=== PATIENT | male | born 1985 | race Hispanic/Latino ===

== ENCOUNTER 2018-06-02 06:50 | Emergency (ER) | payer MEDICAID ==
[2018-06-02 07:15] VITALS: TEMP 98.9; O2SAT 100
--- NOTE | 2018-06-02 07:21 | ED PDOC ---
HPI: Psych/Substance Abuse Time Seen by Provider: 06/02/18 07:07 Chief Complaint (Nursing): Anxiety Chief Complaint (Provider): Anxiety History Per: Patient History/Exam Limitations: no limitations Onset/Duration Of Symptoms: Hrs (last night and this morning) Associated Symptoms: Anxiety Additional Complaint(s): Maldonado Beltran is a 32 year old male, with a past medical history of anxiety, who was brought to the emergency department by EMS for anxiety/panic attack starting last night and this morning. No further medical complaints. Patient is calm after having received Ativan 2mg IV. PMD: None provided. Past Medical History Reviewed: Historical Data, Nursing Documentation, Vital Signs Vital Signs: Last Vital Signs Temp 98.9 F 06/02/18 07:10 Pulse 79 06/02/18 07:10 Resp 22 06/02/18 07:10 BP 117/72 06/02/18 07:10 Pulse Ox 100 06/02/18 07:10 - Medical History PMH: Anxiety Denies: Diabetes, Hepatitis, HIV, HTN, Chronic Kidney Disease, Seizures, Sexually Transmitted Disease - Surgical History Surgical History: No Surg Hx - Family History Family History: States: Unknown Family Hx - Home Medications Home Medications: Ambulatory Orders Medication Instructions Recorded Escitalopram [Lexapro] 10 mg PO DAILY 30 Days #30 tab 06/05/17 Prazosin HCl [Minipress] 1 mg PO HS 30 Days #30 cap 06/05/17 risperiDONE [RisperDAL Tab] 2 mg PO HS 30 Days #30 tab 06/05/17 - Allergies Allergies/Adverse Reactions: Allergies Allergy/AdvReac Type Severity Reaction Status Date / Time amoxicillin Allergy RASH Verified 05/29/17 20:51 Review of Systems ROS Statement: Except As Marked, All Systems Reviewed And Found Negative Psych: Positive for: Anxiety Physical Exam - Reviewed Nursing Documentation Reviewed: Yes Vital Signs Reviewed: Yes - Physical Exam Appears: Positive for: No Acute Distress Head Exam: Positive for: ATRAUMATIC, NORMAL INSPECTION, NORMOCEPHALIC Skin: Positive for: Normal Color, Warm, Dry Eye Exam: Positive for: Normal appearance, EOMI, PERRL Neck: Positive for: Normal, Painless ROM Cardiovascular/Chest: Positive for: Regular Rate, Rhythm. Negative for: Murmur Respiratory: Positive for: Normal Breath Sounds. Negative for: Respiratory Distress Gastrointestinal/Abdominal: Positive for: Normal Exam, Soft. Negative for: Tenderness, Guarding, Rebound Extremity: Positive for: Normal ROM (upper and lower extremities). Negative for: Deformity, Swelling Neurologic/Psych: Positive for: Alert (Sleeping. Unable to arouse, responsive to painful stimuli by moaning.). Negative for: Motor/Sensory Deficits (no focal deficits) - Laboratory Results Result Diagrams: 06/02/18 07:20 06/02/18 07:20 - ECG O2 Sat by Pulse Oximetry: 100 (RA) Pulse Ox Interpretation: Normal Medical Decision Making Medical Decision Making: Time: 07:07 Initial Plan: --EKG --Alcohol serum --CMP --Drug screen, urine --CBC w/ differential --Ativan 2 mg IVP --Reevaluation ------ Scribe Attestation: Documented by Demetri Spivey, acting as a scribe for Joe Murphy MD. Provider Scribe Attestation: All medical record entries made by the Scribe were at my direction and personally dictated by me. I have reviewed the chart and agree that the record accurately reflects my personal performance of the history, physical exam, medical decision making, and the department course for this patient. I have also personally directed, reviewed, and agree with the discharge instructions and disposition. Disposition - Clinical Impression Clinical Impression: Anxiety - Patient ED Disposition Is Patient to be Admitted: No - Disposition Referrals: [facility] [Outside] Disposition: Routine/Home Disposition Time: 13:40 Condition: FAIR Instructions: Anxiety, Adult (DC) Forms: [employer] (Polish)
[2018-06-02 07:58] LABS: ALB/GLOB RATIO 1.5 (1.0-2.1); ALBUMIN 5.2 g/dL (3.5-5.0); ALT/SGPT 21 U/L (21-72); AST/SGOT 32 U/L (17-59); BLOOD UREA NITROGEN 17 mg/dl (9-20); CALCIUM 10.3 mg/dL (8.4-10.2); GFR NON-AFRICAN AMERICAN > 60
[2018-06-02 08:02] LABS: BASO # 0.1 K/uL (0.0-0.2); BASO % 0.8 % (0.0-2.0); EOS # 0.1 K/uL (0.0-0.7); EOS % 1.2 % (0.0-4.0); HEMOGLOBIN 14.7 g/dL (12.0-18.0); LYMPH # 2.7 K/uL (1.0-4.3); LYMPH % 26.2 % (20.0-40.0); MEAN CELL VOLUME 87.9 fl (80.0-94.0); MEAN CORPUSCULAR HEMOGLOBIN 28.5 pg (27.0-31.0); MEAN CORPUSCULAR HGB CONC 32.4 g/dL (33.0-37.0); MEAN PLATELET VOLUME 8.6 fl (7.2-11.7); MONO # 0.9 K/uL (0.0-0.8); MONO % 9.1 % (0.0-10.0); NEUT # 6.4 K/uL (1.8-7.0); NEUT % 62.7 % (50.0-75.0); NRBC % 0.1 % (0.0-0.0); RBC 5.17 Mil/uL (4.40-5.90); RED CELL DISTRIBUTION WIDTH 13.9 % (11.5-14.5); WHITE BLOOD COUNT 10.1 K/uL (4.8-10.8)
--- NOTE | 2018-06-02 09:45 | CARD ---
APPROVED REPORT Date of service: 06/02/2018 EKG Measurement Heart [id number] <Conclusion> Sinus bradycardia with occasional premature ventricular complexes Diffuse ST elevation, consider acute pericarditis or early repolarization Abnormal ECG
[2018-06-02 14:39] VITALS: BP 110/70; PULSE 72; RESP 18
== END 2018-06-02 14:37 | disposition home or self-care (01) ==
LOC: H.ER 06:50
DX: F41.9 Anxiety disorder, unspecified (principal)
CPT/HCPCS: 80053; 82948; 85025; 93005; 96374; 99283; G0480; J2060